=== PATIENT | female | born 1985 | race Caucasian/White ===

== ENCOUNTER 2016-08-20 21:15 | Emergency (ER) | payer MEDICARE ==
--- NOTE | 2016-08-20 21:34 | Emergency Department Record ---
History of Present Illness - General Chief Complaint: Rapid heartbeat Stated Complaint: RAPID HEART RATE AND SOB Time Seen by Provider: 08/20/16 21:32 Source: Patient, Family Mode of Arrival: Ambulatory Limitations: No limitations - History of Present Illness Initial Comments: The patient is here due to not feeling well for one day. She has felt slightly SOB and feels like her heart is racing for about 24 hours. She was just discharged from [facility] just over a week ago where she was admitted for renal failure and had Hemodialysis started. She now has had 2 weeks of HD on Mon, Mon , and Monday. She states she did have a full run of HD yesterday and is due on Monday the day after next. She was admitted to [facility] for the same issues. There has been no reported fever, chills, or cough. MD Complaint: Palpitations Onset/Timin -: Days(s) - Related Data Home Medications Medication Instructions Recorded Confirmed Last Taken Calcitriol 0.5 mcg PO DAILY 08/20/16 08/20/16 Unknown Calcium Acetate 2 tab PO TID 08/20/16 08/20/16 Unknown Carvedilol [Coreg] 12.5 mg PO BID 08/20/16 08/20/16 Unknown Ergocalciferol (Vitamin D2) 50,000 unit PO WEEKLY 08/20/16 08/20/16 Unknown [Vitamin D2] Furosemide [Lasix] 80 mg PO TID 08/20/16 08/20/16 Unknown Losartan Potassium [Cozaar] 25 mg PO QHS 08/20/16 08/20/16 Unknown Ranitidine HCl [Zantac] 150 mg PO DAILY 08/20/16 08/20/16 Unknown Allergies Allergy/AdvReac Type Severity Reaction Status Date / Time No Known Drug Allergies Allergy Verified 08/20/16 21:40 Review of Systems Constitutional: Denies: Chills, Fever Eyes: Denies: Eye discharge ENT: Denies: Congestion Respiratory: Reports: Dyspnea. Denies: Cough Cardiovascular: Denies: Chest pain Past Medical History - SOCIAL HISTORY Smoking Status: Heavy tobacco smoker (>10/day) Alcohol Use: None Drug Use: None - RESPIRATORY Hx Respiratory Disorders: No Physical Exam - General General Appearance: Alert, Oriented x3, Cooperative, No acute distress - Head Head exam: Atraumatic, Normocephalic, Normal inspection - Eye Eye exam: Normal appearance, PERRL - ENT Throat exam: Normal inspection. negative: Tonsillar erythema, Tonsillar exudate - Neck Neck exam: Normal inspection, Full ROM. negative: Tenderness - Respiratory Respiratory exam: Normal lung sounds bilaterally. negative: Respiratory distress - Cardiovascular Cardiovascular Exam: Regular rate, Normal rhythm, Normal heart sounds - GI/Abdominal GI/Abdominal exam: Soft, Normal bowel sounds. negative: Tenderness - Extremities Extremities exam: Normal inspection, Full ROM, Normal capillary refill. negative: Tenderness - Neurological Neurological exam: Alert, Normal gait. negative: Abnormal gait, Motor sensory deficit Course Vital Signs 08/20/16 21:29 Temperature 98.9 F Pulse Rate [ 106 H [facility] ] Respiratory 18 Rate Blood Pressure 154/112 [Left Arm] Pulse Ox 100 - Reevaluation(s) Reevaluation #1: The patient is doing OK now at this time. She denies any pain but does feel mildly SOB at times. On exam her lungs are very clear with NO rales or rhonchi. Her HR is 95-100 and RA biox is 99-100%. I explained to her that her lab tests do not explain her symptoms and that it does not appear she needs emergent HD. 08/20/16 23:02 08/20/16 23:16 Reevaluation #2: The patient is doing well at this time. Her HR is 95 and RA biox is 99%. She is laying down on the cot with no SHUBHAM or SOB but does states she does not feel well and is not sure why. She states she feels fatigued and has no energy. I did explain to her that the CXR does not demonstrate any significant CHF and her lungs are clear on examination but due to her not feeling well I would like to try to admit her to a larger hospital to get a dialysis run in tomorrow. The patient is declining that plan and just wants to go home. I did explain to her that if she gets any worse she will need to return to the ER and she does understand that. I also explained to her that if she leaves the hospital she may develop worsening SOB and could go into pulmonary edema. If that occurs she could go into cardiac or respiratory arrest which could lead to disability or . The patient understands the risks and accepts the risks. Presently she does have proper decision making capacity and is capable of understanding and accepting the risks. She understands we cannot be held liable for NOT admitting her to the hospital. 08/20/16 23:11 08/20/16 23:17 Medical Decision Making - Data Complexity MDM Data: Labs Ordered and/or Reviewed, X-Ray Ordered and/or Reviewed, EKG Ordered and/or Reviewed - Lab Data Result diagrams: 08/20/16 22:15 08/20/16 22:15 - EKG Data -: EKG Interpreted by Me EKG: No Acute Changes - Radiology Data Radiology results: Report reviewed (CXR: CMG, Possibly mild pulm vasc congestion.) Disposition Disposition: Discharge Clinical Impression: Renal failure (ARF), acute on chronic Qualifiers: Acute renal failure type: unspecified Chronic kidney disease stage: on chronic dialysis Qualified Code(s): N17.9 - Acute kidney failure, unspecified Disposition: Home, Self-Care Condition: (1) Good Instructions: Palpitations (ED) Additional Instructions: Please continue your regular medicines and limit your fluid intake. Please keep your dialysis appointment for Monday and please return to the ER for any worsening breathing issues or pain. Forms: Patient Portal Access Time of Disposition: 23:06
[2016-08-20 22:38] LABS: BASO % 1.2 % (0-6); EOS % 4.8 % (0-6); GRAN % 74.1 % (47-80); HEMATOCRIT 33.1 % (35.0-47.0); HEMOGLOBIN 9.9 gm/dl (11.6-16.0); LYMPH % 11.9 % (16-45); MEAN CELL VOLUME 104.1 fl (81-97); MEAN CORPUSCULAR HEMOGLOBIN 31.1 pg (27-33); MEAN CORPUSCULAR HGB CONC 29.9 g/dl (32-36); MEAN PLATELET VOLUME 9.9 fl (7.4-10.4); PLATELET COUNT 199 K/uL (130-400); RED BLOOD COUNT 3.18 M/uL (3.80-5.40); RED CELL DISTRIBUTION WIDTH 17.1 % (11.5-14.5); WHITE BLOOD COUNT W/O DIFF 11.6 K/uL (4.2-12.2)
[2016-08-20 22:46] LABS: ANION GAP 11.7 (7-16); CARBON DIOXIDE 29.3 mmol/L (22-30); CREATININE 4.6 mg/dL (0.52-1.04)
[2016-08-20 22:55] LABS: CKMB 0.8 ug/L (0-6)
== END 2016-08-20 23:21 | disposition home or self-care (01) ==
LOC: ER 21:15
DX: N17.9 Acute kidney failure, unspecified (principal); N18.6 End stage renal disease; R06.02 Shortness of breath; R00.0 Tachycardia, unspecified; Z99.2 Dependence on renal dialysis; I25.10 Atherosclerotic heart disease of native coronary artery without angina pectoris; F17.210 Nicotine dependence, cigarettes, uncomplicated
CPT/HCPCS: 71020; 80048; 82550; 82553; 85025; 93005; 93010; 99284